=== PATIENT | male | born 1965 | race American Indian/Alaskan Native ===

== ENCOUNTER 2017-04-27 20:51 | Emergency (ER) | payer MEDICARE, OTHER ==
[2017-04-27 21:20] VITALS: BP 128/62; PULSE 61; RESP 16; TEMP 98.9; O2SAT 100
--- NOTE | 2017-04-27 21:53 | ED PDOC ---
HPI: Back Time Seen by Provider: 04/27/17 21:30 Chief Complaint (Nursing): Back Pain Chief Complaint (Provider): Left low back pain, radiating down pain History Per: Patient History/Exam Limitations: no limitations Onset/Duration Of Symptoms: Days Current Symptoms Are (Timing): Still Present Full Body Front + Back: 1 - Pain Additional Complaint(s): Pt has chronic sciatica and gets prescribed #120 mg of percocet 5/325mg every month. Pt states he ran out of mediations. No new trauma. Past Medical History Reviewed: Historical Data, Nursing Documentation, Vital Signs Vital Signs: Last Vital Signs Temp 98.9 F 04/27/17 21:18 Pulse 61 04/27/17 21:18 Resp 16 04/27/17 21:18 BP 128/62 04/27/17 21:18 Pulse Ox 100 04/27/17 21:18 - Medical History PMH: Back Problems (Herniated Discs, Sciatica) - Surgical History Surgical History: No Surg Hx - Family History Family History: States: Unknown Family Hx - Living Arrangements Living Arrangements: With Family - Social History Current smoker - smoking cessation education provided: Yes Alcohol: None Drugs: Denies - Immunization History Hx Tetanus Toxoid Vaccination: No Hx Influenza Vaccination: No Hx Pneumococcal Vaccination: No - Home Medications Home Medications: Ambulatory Orders Medication Instructions Recorded Cyclobenzaprine HCl [Flexeril] 10 mg PO TID #21 tab 12/26/14 Diclofenac Potassium [Cataflam] 50 mg PO TID 12/26/14 Naproxen 500 mg PO Q12 #20 tab 12/26/14 Ibuprofen [Motrin] 600 mg PO Q8 #30 tab 03/26/15 Oxycodone HCl/Acetaminophen 1 tab PO Q6 PRN #10 tab 03/26/15 [Percocet 325 mg-5 mg] Meloxicam [Mobic] 15 mg PO DAILY PRN #30 tab 04/24/15 Methocarbamol [Robaxin] 500 mg PO QID PRN #28 tab 04/24/15 Methocarbamol [Robaxin-750] 750 mg PO BIDPC #20 tab 08/01/15 Naproxen 500 mg PO Q12 #20 tab 08/01/15 Tramadol HCl [Ultram] 50 mg PO Q6 #15 tab 01/20/16 traMADol [Ultram] 50 mg PO Q6 PRN #12 tab 04/13/16 - Allergies Allergies/Adverse Reactions: Allergies Allergy/AdvReac Type Severity Reaction Status Date / Time No Known Allergies Allergy Verified 04/27/17 21:18 Review of Systems ROS Statement: Except As Marked, All Systems Reviewed And Found Negative Constitutional: Negative for: Fever, Chills Gastrointestinal: Negative for: Nausea, Vomiting, Abdominal Pain Genitourinary Male: Negative for: Dysuria, Frequency Musculoskeletal: Positive for: Back Pain Physical Exam - Reviewed Nursing Documentation Reviewed: Yes Vital Signs Reviewed: Yes - Physical Exam Appears: Positive for: Well, Non-toxic, No Acute Distress Head Exam: Positive for: ATRAUMATIC, NORMAL INSPECTION, NORMOCEPHALIC Skin: Positive for: Normal Color, Warm, DRY Eye Exam: Positive for: Normal appearance ENT: Positive for: Normal ENT Inspection Neck: Positive for: Normal, Painless ROM Respiratory: Negative for: Accessory Muscle Use, Respiratory Distress Back: Positive for: Normal Inspection, Other ((+) left leg raise ) Extremity: Positive for: Normal ROM Neurologic/Psych: Positive for: Alert, Oriented - ECG O2 Sat by Pulse Oximetry: 100 Disposition - Clinical Impression Clinical Impression: Sciatica - Patient ED Disposition Is Patient to be Admitted: No Counseled Patient/Family Regarding: Diagnosis, Need For Followup - Disposition Disposition: Routine/Home Disposition Time: 21:53 Condition: GOOD Instructions: Sciatica (ED)
[2017-04-27] MEDS: Oxycodone/Acetaminophen 5/325 mg Tab PO STA (22:02)
[2017-04-27] MEDS ORDERED: Oxycodone/Acetaminophen 5/325 mg Tab ONE (22:03)
== END 2017-04-27 22:10 | disposition home or self-care (01) ==
LOC: H.ER 20:51
DX: M54.32 Sciatica, left side (principal)

== ENCOUNTER 2017-07-27 03:55 | Emergency (ER) | payer MEDICARE ==
[2017-07-27 04:14] VITALS: BMI 25.7
[2017-07-27 04:15] VITALS: BP 121/60; PULSE 63; RESP 16; TEMP 97.9; O2SAT 99
--- NOTE | 2017-07-27 05:16 | ED PDOC ---
HPI: Back Time Seen by Provider: 07/27/17 04:38 Chief Complaint (Nursing): Back Pain Chief Complaint (Provider): low back pain History Per: Patient History/Exam Limitations: no limitations Onset/Duration Of Symptoms: Days (2) Current Symptoms Are (Timing): Still Present Previous Symptoms: Back Pain Exacerbating Factor(s): Turning, Movement Additional History Per: Patient Additional Complaint(s): 52 y/o male history of sciatica presents with low back/left leg pain x 2 days. Patient states his sciatica was exacerbated after moving his couch to clean. Denies bowel/bladder incontinence, numbness/weakness lower extremities. Past Medical History Reviewed: Historical Data, Nursing Documentation, Vital Signs Vital Signs: Last Vital Signs Temp 97.9 F 07/27/17 04:13 Pulse 63 07/27/17 04:13 Resp 16 07/27/17 04:13 BP 121/60 07/27/17 04:13 Pulse Ox 99 07/27/17 04:13 - Medical History PMH: Back Problems (Herniated Discs, Sciatica) - Surgical History Surgical History: No Surg Hx - Family History Family History: States: Unknown Family Hx - Immunization History Hx Tetanus Toxoid Vaccination: No Hx Influenza Vaccination: No Hx Pneumococcal Vaccination: No - Home Medications Home Medications: Ambulatory Orders Medication Instructions Recorded Cyclobenzaprine HCl [Flexeril] 10 mg PO TID #21 tab 12/26/14 Diclofenac Potassium [Cataflam] 50 mg PO TID 12/26/14 Naproxen 500 mg PO Q12 #20 tab 12/26/14 Ibuprofen [Motrin] 600 mg PO Q8 #30 tab 03/26/15 Oxycodone HCl/Acetaminophen 1 tab PO Q6 PRN #10 tab 03/26/15 [Percocet 325 mg-5 mg] Meloxicam [Mobic] 15 mg PO DAILY PRN #30 tab 04/24/15 Methocarbamol [Robaxin] 500 mg PO QID PRN #28 tab 04/24/15 Methocarbamol [Robaxin-750] 750 mg PO BIDPC #20 tab 08/01/15 Naproxen 500 mg PO Q12 #20 tab 08/01/15 Tramadol HCl [Ultram] 50 mg PO Q6 #15 tab 01/20/16 traMADol [Ultram] 50 mg PO Q6 PRN #12 tab 04/13/16 Lidocaine 5% [Lidoderm] 1 patch TOP DAILY #5 patch 07/27/17 Naproxen [Naprosyn] 500 mg PO Q12 PRN #20 tablet 07/27/17 diaZEpam [Valium] 5 mg PO Q12 PRN #10 tab 07/27/17 - Allergies Allergies/Adverse Reactions: Allergies Allergy/AdvReac Type Severity Reaction Status Date / Time No Known Allergies Allergy Verified 07/27/17 04:13 Review of Systems ROS Statement: Except As Marked, All Systems Reviewed And Found Negative Musculoskeletal: Positive for: Back Pain, Leg Pain (left) Physical Exam - Reviewed Nursing Documentation Reviewed: Yes Vital Signs Reviewed: Yes - Physical Exam Appears: Positive for: Well, Non-toxic, No Acute Distress Head Exam: Positive for: ATRAUMATIC, NORMAL INSPECTION, NORMOCEPHALIC Skin: Positive for: Normal Color Cardiovascular/Chest: Positive for: Regular Rate, Rhythm Respiratory: Positive for: Normal Breath Sounds Back: Positive for: Muscle Spasm (lspine paraspinal). Negative for: L CVA Tenderness, R CVA Tenderness, Vertebral Tenderness, Decreased ROM Extremity: Positive for: Normal ROM Neurologic/Psych: Positive for: Alert, Oriented. Negative for: Motor/Sensory Deficits - ECG O2 Sat by Pulse Oximetry: 99 - Progress ED Course And Treament: Patient refusing xray; states pain similar to previous sciatica flare-ups. Percocet PO, valium PO, Naproxen PO Patient educated on findings, discharged with rx Naproxen, valium, lidoderm. Advised follow up PMD 2-3 days. Return precautions given. Disposition - Clinical Impression Clinical Impression: Sciatica, Chronic back pain - Patient ED Disposition Is Patient to be Admitted: No Counseled Patient/Family Regarding: Diagnosis, Need For Followup, Rx Given - Disposition Referrals: Shaik Gordon MD [Primary Care Provider] - Disposition: Routine/Home Disposition Time: 05:17 Condition: IMPROVED Prescriptions: diaZEpam [Valium] 5 mg PO Q12 PRN #10 tab PRN Reason: Muscle Spasm Lidocaine 5% [Lidoderm] 1 patch TOP DAILY #5 patch Naproxen [Naprosyn] 500 mg PO Q12 PRN #20 tablet PRN Reason: Pain, Moderate (4-7) Instructions: Sciatica (ED), Acute Low Back Pain (ED)
[2017-07-27] MEDS ORDERED: Naproxen 500 MG TAB PO ONE (05:19)
[2017-07-27] MEDS ORDERED: Oxycodone/Acetaminophen 5/325 mg Tab ONE (05:20)
[2017-07-27] MEDS: Oxycodone/Acetaminophen 5/325 mg Tab PO ONE (05:22)
[2017-07-27] MEDS: Naproxen 500 MG TAB PO ONE (05:23)
== END 2017-07-27 05:45 | disposition home or self-care (01) ==
LOC: H.ER 03:55
DX: M54.30 Sciatica, unspecified side (principal); G89.29 Other chronic pain

== ENCOUNTER 2017-08-20 11:04 | Emergency (ER) | payer MEDICARE ==
[2017-08-20 11:04] VITALS: BMI 25.7
[2017-08-20 11:15] VITALS: BP 131/75; PULSE 87; RESP 16; TEMP 97; O2SAT 100
--- NOTE | 2017-08-20 12:07 | ED PDOC ---
HPI: Chest Pain Time Seen by Provider: 08/20/17 11:16 Chief Complaint (Nursing): Chest Pain Chief Complaint (Provider): Chest Pain History Per: Patient History/Exam Limitations: no limitations Onset/Duration Of Symptoms: Days (x3) Current Symptoms Are (Timing): Still Present Additional Complaint(s): 52 year old male with a past medical history of sciatica, who presents to the ED complaining of right sided pleuritic chest pain exacerbated by coughing and on deep inspiration x3 days. Patient states that the dry wall crumbled in his home and he has been breathing in the dust. Denies trauma, injury, and fever. Cough is non-productive. No shortness of breath. PMD: Shaik Gordon Past Medical History Reviewed: Historical Data, Nursing Documentation, Vital Signs Vital Signs: Last Vital Signs Temp 97 F L 08/20/17 11:14 Pulse 87 08/20/17 11:14 Resp 16 08/20/17 11:14 BP 131/75 08/20/17 11:14 Pulse Ox 100 08/20/17 12:11 - Medical History PMH: Back Problems (Herniated Discs, Sciatica) - Family History Family History: States: Unknown Family Hx - Immunization History Hx Tetanus Toxoid Vaccination: No Hx Influenza Vaccination: No Hx Pneumococcal Vaccination: No - Home Medications Home Medications: Ambulatory Orders Medication Instructions Recorded Cyclobenzaprine HCl [Flexeril] 10 mg PO TID #21 tab 12/26/14 Diclofenac Potassium [Cataflam] 50 mg PO TID 12/26/14 Naproxen 500 mg PO Q12 #20 tab 12/26/14 Ibuprofen [Motrin] 600 mg PO Q8 #30 tab 03/26/15 Oxycodone HCl/Acetaminophen 1 tab PO Q6 PRN #10 tab 03/26/15 [Percocet 325 mg-5 mg] Meloxicam [Mobic] 15 mg PO DAILY PRN #30 tab 04/24/15 Methocarbamol [Robaxin] 500 mg PO QID PRN #28 tab 04/24/15 Methocarbamol [Robaxin-750] 750 mg PO BIDPC #20 tab 08/01/15 Naproxen 500 mg PO Q12 #20 tab 08/01/15 Tramadol HCl [Ultram] 50 mg PO Q6 #15 tab 06/14/16 traMADol [Ultram] 50 mg PO Q6 PRN #12 tab 04/13/16 Lidocaine 5% [Lidoderm] 1 patch TOP DAILY #5 patch 07/27/17 Naproxen [Naprosyn] 500 mg PO Q12 PRN #20 tablet 07/27/17 diaZEpam [Valium] 5 mg PO Q12 PRN #10 tab 07/27/17 Naproxen [Naprosyn] 500 mg PO Q12H #20 tab 08/20/17 traMADol [Ultram] 50 mg PO Q8 #10 tab 08/20/17 - Allergies Allergies/Adverse Reactions: Allergies Allergy/AdvReac Type Severity Reaction Status Date / Time No Known Allergies Allergy Verified 07/27/17 04:13 Review of Systems ROS Statement: Except As Marked, All Systems Reviewed And Found Negative Constitutional: Negative for: Fever Cardiovascular: Positive for: Chest Pain (pleuritic right sided) Respiratory: Positive for: Cough. Negative for: Shortness of Breath, Sputum Physical Exam - Reviewed Nursing Documentation Reviewed: Yes Vital Signs Reviewed: Yes - Physical Exam Appears: Positive for: Non-toxic, No Acute Distress Head Exam: Positive for: ATRAUMATIC, NORMAL INSPECTION, NORMOCEPHALIC Skin: Positive for: Normal Color, Warm, Dry. Negative for: Rash Eye Exam: Positive for: EOMI, Normal appearance, PERRL Neck: Positive for: Normal, Painless ROM, Supple Cardiovascular/Chest: Positive for: Regular Rate, Rhythm. Negative for: Chest Non Tender, Murmur Respiratory: Positive for: Normal Breath Sounds (diminished breath sounds with shallow inspirations bilaterally). Negative for: Wheezing, Respiratory Distress Gastrointestinal/Abdominal: Positive for: Normal Exam, Soft. Negative for: Tenderness Back: Positive for: Normal Inspection. Negative for: L CVA Tenderness, R CVA Tenderness, Vertebral Tenderness Extremity: Positive for: Normal ROM. Negative for: Pedal Edema, Deformity Neurologic/Psych: Positive for: Alert, Oriented (x3). Negative for: Motor/ Sensory Deficits - ECG O2 Sat by Pulse Oximetry: 100 (RA) Pulse Ox Interpretation: Normal Medical Decision Making Medical Decision Making: Time: 11:34 Plan: --Chest X-Ray 2 views --Reevaluation Scribe Attestation: Documented by Andrea Ingram, acting as a scribe for Bob Zuniga MD. Provider Scribe Attestation: All medical record entries made by the Scribe were at my direction and personally dictated by me. I have reviewed the chart and agree that the record accurately reflects my personal performance of the history, physical exam, medical decision making, and the department course for this patient. I have also personally directed, reviewed, and agree with the discharge instructions and disposition. Disposition - Clinical Impression Clinical Impression: Pleuritic pain - Patient ED Disposition Is Patient to be Admitted: No Counseled Patient/Family Regarding: Studies Performed, Diagnosis, Need For Followup, Rx Given - Disposition Referrals: [facility] [Outside] Disposition: Routine/Home Disposition Time: 12:22 Condition: FAIR Prescriptions: Naproxen [Naprosyn] 500 mg PO Q12H #20 tab traMADol [Ultram] 50 mg PO Q8 #10 tab Instructions: Pleurisy (ED) Forms: [employer] (Persian)
[2017-08-20] MEDS ORDERED: Oxycodone/Acetaminophen 5/325 mg Tab PO STA (12:30)
[2017-08-20] MEDS ORDERED: Oxycodone/Acetaminophen 5/325 mg Tab ONE (12:36)
--- NOTE | 2017-08-20 12:48 | RAD ---
HISTORY: Pleuritic chest pain right side COMPARISON: Chest radiograph dated 11/23/2013. TECHNIQUE: Chest PA and lateral FINDINGS: LUNGS: Right lower lobe infiltrate. PLEURA: No significant pleural effusion identified. No pneumothorax apparent. CARDIOVASCULAR: Normal. OSSEOUS STRUCTURES: Unchanged. VISUALIZED UPPER ABDOMEN: Normal. OTHER FINDINGS: None. IMPRESSION: Right lower lobe infiltrate.
== END 2017-08-20 13:32 | disposition home or self-care (01) ==
LOC: H.ER 11:04
DX: R07.1 Chest pain on breathing (principal)

== ENCOUNTER 2017-11-07 21:46 | Inpatient (IN) | payer MEDICARE ==
[2017-11-07 21:46] VITALS: BMI 25.7
[2017-11-07] MEDS ORDERED: Oxycodone/Acetaminophen 5/325 mg Tab PO ONE (22:39)
--- NOTE | 2017-11-07 22:42 | ED PDOC ---
HPI: General Adult Time Seen by Provider: 11/07/17 22:24 Chief Complaint (Nursing): Shortness Of Breath Chief Complaint (Provider): chest pain History Per: Patient History/Exam Limitations: no limitations Onset/Duration Of Symptoms: Days Current Symptoms Are (Timing): Still Present Additional Complaint(s): Pt. with left lateral chest pain on movement. Started after cleaning some dust from a broken wall. Had dyspnea with it as well. Has had similar 2 months ago and with same dust cleaning. Pt. denies cough, fever, back pain, abd pain, numbness, tingles, weakness. No nausea, vomit, diarrhea. No calf pain, hormone tx. Past Medical History Reviewed: Nursing Documentation, Vital Signs Vital Signs: Last Vital Signs Temp 100.7 F H 11/07/17 21:55 Pulse 68 11/07/17 21:55 Resp 20 11/07/17 21:55 BP Pulse Ox 100 11/07/17 22:49 - Medical History PMH: Back Problems (Herniated Discs, Sciatica) - Family History Family History: States: Unknown Family Hx - Immunization History Hx Tetanus Toxoid Vaccination: No Hx Influenza Vaccination: No Hx Pneumococcal Vaccination: No - Home Medications Home Medications: Ambulatory Orders Medication Instructions Recorded Cyclobenzaprine HCl [Flexeril] 10 mg PO TID #21 tab 12/26/14 Diclofenac Potassium [Cataflam] 50 mg PO TID 12/26/14 Naproxen 500 mg PO Q12 #20 tab 12/26/14 Ibuprofen [Motrin] 600 mg PO Q8 #30 tab 03/26/15 Oxycodone HCl/Acetaminophen 1 tab PO Q6 PRN #10 tab 03/26/15 [Percocet 325 mg-5 mg] Meloxicam [Mobic] 15 mg PO DAILY PRN #30 tab 04/24/15 Methocarbamol [Robaxin] 500 mg PO QID PRN #28 tab 04/24/15 Methocarbamol [Robaxin-750] 750 mg PO BIDPC #20 tab 08/01/15 Naproxen 500 mg PO Q12 #20 tab 08/01/15 Tramadol HCl [Ultram] 50 mg PO Q6 #15 tab 01/20/16 traMADol [Ultram] 50 mg PO Q6 PRN #12 tab 04/13/16 Lidocaine 5% [Lidoderm] 1 patch TOP DAILY #5 patch 07/27/17 Naproxen [Naprosyn] 500 mg PO Q12 PRN #20 tablet 07/27/17 diaZEpam [Valium] 5 mg PO Q12 PRN #10 tab 07/27/17 Naproxen [Naprosyn] 500 mg PO Q12H #20 tab 08/20/17 oxyCODONE/Acetaminophen [Percocet 1 tab PO Q8 #6 tab 08/20/17 5/325 mg Tab] - Allergies Allergies/Adverse Reactions: Allergies Allergy/AdvReac Type Severity Reaction Status Date / Time No Known Allergies Allergy Verified 07/27/17 04:13 Review of Systems ROS Statement: Except As Marked, All Systems Reviewed And Found Negative Cardiovascular: Positive for: Chest Pain Respiratory: Positive for: Shortness of Breath Physical Exam - Reviewed Nursing Documentation Reviewed: Yes Vital Signs Reviewed: Yes - Physical Exam Appears: Positive for: Non-toxic, No Acute Distress Head Exam: Positive for: ATRAUMATIC, NORMAL INSPECTION, NORMOCEPHALIC Skin: Positive for: Normal Color, Warm, DRY Eye Exam: Positive for: EOMI, Normal appearance, PERRL ENT: Positive for: Normal ENT Inspection Neck: Positive for: Normal, Painless ROM Cardiovascular/Chest: Positive for: Regular Rate, Rhythm. Negative for: Chest Non Tender (L lateral chest on touch; no gross deformity; no erythema) Respiratory: Positive for: Normal Breath Sounds. Negative for: Decreased Breath Sounds, Accessory Muscle Use Gastrointestinal/Abdominal: Positive for: Normal Exam, Soft. Negative for: Tenderness Back: Positive for: Normal Inspection. Negative for: L CVA Tenderness, R CVA Tenderness Extremity: Positive for: Normal ROM Neurologic/Psych: Positive for: Alert, Oriented - ECG ECG: Positive for: Interpreted By Me, Viewed By Me ECG Rhythm: Positive for: Normal QRS, Normal ST Segment, Sinus Rhythm O2 Sat by Pulse Oximetry: 100 Pulse Ox Interpretation: Normal - Radiology X-Ray: Interpreted by Me, Viewed By Me X-Ray Interpretation: Infiltrates - Progress ED Course And Treament: 0100: Stable. AAOx3. Pain controlled. Will sign out to Dr. Debra Gonzalez on ct and labs. Disposition - Clinical Impression Clinical Impression: Pleuritic pain - Patient ED Disposition Is Patient to be Admitted: Transfer of Care - Disposition Disposition Time: 00:58 Condition: FAIR Patient Signed Over To: Ryan Kaur
[2017-11-07] MEDS ORDERED: Oxycodone/Acetaminophen 5/325 mg Tab ONE (23:11)
[2017-11-08] MEDS ORDERED: Albuterol-Ipratrop 3 mg / 0.5 (3 ml) UD IH STA (00:57)
[2017-11-08] MEDS ORDERED: Sodium Chloride 0.9% 1,000 ML IV SCH (01:00)
--- NOTE | 2017-11-08 01:01 | ED PDOC ---
- Laboratory Results Result Diagrams: 11/08/17 01:20 11/08/17 01:20 - ECG O2 Sat by Pulse Oximetry: 100 (RA) Pulse Ox Interpretation: Normal Medical Decision Making Medical Decision Making: Time: --01:00 Reassess --Patient signed out to the provider by Dr. Noriega pending labs and CT chest. --04:59 EXAM: CT Angiography Chest With Intravenous Contrast CLINICAL HISTORY: 52 years old, male; Pain; Other: Back pain , SOB; Additional info: Chest pain TECHNIQUE: Axial computed tomographic angiography images of the chest with intravenous contrast using pulmonary embolism protocol. All CT scans at this facility use one or more dose reduction techniques, viz.: automated exposure control; ma/kV adjustment per patient size (including targeted exams where dose is matched to indication; i.e. head); or iterative reconstruction technique. CONTRAST: 95 mL of visipaque 320 administered intravenously. COMPARISON: No relevant prior studies available. FINDINGS: Pulmonary arteries: Extensive bilateral pulmonary emboli in the lower lungs. Aorta: No acute findings. No thoracic aortic aneurysm. Lungs: Infiltrates in the lung bases consistent with pulmonary infarcts. Volar seen along the pleural surface of the upper lungs. Bronchiectasis and scarring in lung bases. No mass. Pleural space: Small left pleural effusion. Very small loculated right pleural effusion. No pneumothorax. Heart: Left ventricular hypertrophy. No evidence of right heart strain. No significant pericardial effusion. Bones/joints: No acute fracture. No dislocation. Soft tissues: Unremarkable. Lymph nodes: Unremarkable. No enlarged lymph nodes. IMPRESSION: 1. Extensive bilateral pulmonary emboli in the lower lungs. Moderate clot burden. 2. Infiltrates in the lung bases consistent with pulmonary infarcts. 3. Small left pleural effusion. --06:00 patient case discussed with Dr. Fong to admit the patient to in-patient telemetry for pneumonia and pulmonary embolism. Scribe Attestation: Documented by Yves Bundy acting as a scribe for Ryan Kaur MD. Provider Attestation: All medical record entries made by the Scribe were at my direction and personally dictated by me. I have reviewed the chart and agree that the record accurately reflects my personal performance of the history, physical exam, medical decision making, and the department course for this patient. I have also personally directed, reviewed, and agree with the discharge instructions and disposition. Disposition Discussed With : Teja Fong Doctor Will See Patient In The: Hospital Counseled Patient/Family Regarding: Studies Performed, Diagnosis - Clinical Impression Clinical Impression: Pleuritic pain, Pulmonary embolism, Pneumonia - POA Present On Arrival: Deep Vein Thrombosis / PE - Disposition Disposition: Admitted as In-Patient Disposition Time: 05:30 Condition: FAIR
[2017-11-08] MEDS ORDERED: Azithromycin 500 MG in NS 250 ML IVPB STA (01:04)
[2017-11-08 01:23] LABS: BASO # 0.1 K/uL (0.0-0.2); BASO % 0.7 % (0.0-2.0); EOS % 0.2 % (0.0-4.0); LYMPH # 1.7 K/uL (1.0-4.3); LYMPH % 13.7 % (20.0-40.0); MEAN CELL VOLUME 77.8 fl (80.0-94.0); MEAN CORPUSCULAR HEMOGLOBIN 24.9 pg (27.0-31.0); MEAN PLATELET VOLUME 7.6 fl (7.2-11.7); MONO # 0.7 K/uL (0.0-0.8); MONO % 5.8 % (0.0-10.0); NEUT # 9.8 K/uL (1.8-7.0); NEUT % 79.6 % (50.0-75.0); NRBC % 0.1 % (0.0-0.0); RBC 5.24 Mil/uL (4.40-5.90); RED CELL DISTRIBUTION WIDTH 16.7 % (11.5-14.5); WHITE BLOOD COUNT 12.3 K/uL (4.8-10.8)
[2017-11-08] MEDS ORDERED: Albuterol 0.083% Inhal Sol (2.5 mg/3 mL) UD ONE (01:24)
[2017-11-08 01:28] LABS: VENOUS BLOOD GAS BASE EXCESS 2.4 mmol/L (0.0-2.0); VENOUS BLOOD GAS PCO2 51 mmHg (40-60); VENOUS BLOOD GAS PO2 24 mm/Hg (30-55); VENOUS BLOOD PH 7.36 (7.32-7.43)
[2017-11-08 01:30] LABS: PARTIAL THROMBOPLASTIN TIME 36.9 Seconds (25.6-37.1); PROTHROMBIN TIME 11.1 Seconds (9.8-13.1)
[2017-11-08 01:33] LABS: ALB/GLOB RATIO 1.2 (1.0-2.1); ALBUMIN 4.1 g/dL (3.5-5.0); ALT/SGPT 37 U/L (21-72); AST/SGOT 16 U/L (17-59); BLOOD UREA NITROGEN 12 mg/dl (9-20); CALCIUM 9.6 mg/dL (8.4-10.2); GFR AFRICAN-AMERICAN > 60; GFR NON-AFRICAN AMERICAN > 60
[2017-11-08] MEDS ORDERED: Iodixanol 320 MG/ML 100 ML BOTTLE IV ONE (03:06)
[2017-11-08] MEDS ORDERED: Sodium Chloride 0.9% 100 ML ONE (03:07)
[2017-11-08] MEDS ORDERED: Enoxaparin 100 mg Syringe SC STA (05:03)
--- NOTE | 2017-11-08 08:29 | RAD ---
HISTORY: COMPARISON: 08/20/2017. TECHNIQUE: Chest PA and lateral FINDINGS: LINES AND TUBES: None. LUNG AND PLEURA: The lungs are well inflated. There is confluent airspace disease in the left lower lobe. There is also minimal airspace disease in the right lung base. Also noted is bibasilar atelectasis/ scarring. HEART AND MEDIASTINUM: The heart is not enlarged. The hilar and mediastinal contours are within normal limits. SKELETAL STRUCTURES: The bony structures are within normal limits for the patient's age. VISUALIZED UPPER ABDOMEN: Normal. OTHER FINDINGS: None. IMPRESSION: Suspect left lower lobe pneumonia. Follow-up to resolution is advised. Right lower lobe atelectasis/ scarring.
[2017-11-08] MEDS ORDERED: Oxycodone/Acetaminophen 5/325 mg Tab ONE (10:14)
[2017-11-08] MEDS: Oxycodone/Acetaminophen 5/325 mg Tab PO PRN ×2 (10:15→18:02)
--- NOTE | 2017-11-08 10:41 | CT ---
PROCEDURE: CT Chest with contrast (Pulmonary Angiogram) HISTORY: chest pain COMPARISON: None available. TECHNIQUE: Axial computed tomography images were obtained of the chest in the pulmonary arterial phase of enhancement. Coronal and sagittal reformatted images were created and reviewed. Maximum intensity projection (MIP) reconstructed images in the following planes: 3 orthogonal planes. Intravenous contrast dose: 95 cc Visipaque 320 Mean Hounsfield unit values in the main pulmonary artery: 264.58 Radiation dose: Total exam DLP = 337.88y mGy-cm. This CT exam was performed using one or more of the following dose reduction techniques: Automated exposure control, adjustment of the mA and/or kV according to patient size, and/or use of iterative reconstruction technique. FINDINGS: PULMONARY ARTERIES: Bilateral lower lobe thrombus at the segmental and subsegmental branches levels right greater than left. AORTA: No acute findings. No thoracic aortic aneurysm. LUNGS: Bilateral lower lobe infiltrates left greater than right. PLEURAL SPACES: Small left pleural effusion. HEART: Unremarkable. No cardiomegaly. No significant pericardial effusion. LYMPH NODES: No lymphadenopathy. BONES, CHEST WALL: Unremarkable. No fracture or destructive lesion OTHER FINDINGS: Unremarkable. IMPRESSION: Bilateral lower lobe pulmonary emboli right greater than left. Concordant results (preliminary interpretation) provided by [facility]. Procedure Completed: 03:34 Preliminary ([facility]) Report: Dictated and Authenticated: 04:59 Final Interpretation: 10:30 November 08, 2017.
--- NOTE | 2017-11-08 11:21 | US ---
PROCEDURE:: Bilateral lower extremity duplex venous Doppler examination. HISTORY: R/o DVT . PRIORS: None. FINDINGS: 2-D, color and duplex Doppler analysis of bilateral lower extremity venous circulation using routine protocol from the femoral veins through the popliteal veins. Venous compressibility: Normal. Flow and augmentation patterns: Normal. Visualized veins upper third of calf: Normal. Grimes cyst: None. IMPRESSION: No sonographic or Doppler evidence for DVT in bilateral lower extremities.
--- NOTE | 2017-11-08 11:42 | CARD ---
APPROVED REPORT EKG Measurement Heart [id number] <Conclusion> Normal sinus rhythm Possible Left atrial enlargement Left ventricular hypertrophy Abnormal ECG
[2017-11-08] MEDS: Enoxaparin 100 mg Syringe SC SCH (18:38)
[2017-11-08] MEDS ORDERED: Enoxaparin 80 mg Syringe SC SCH (21:00)
[2017-11-09] MEDS: Oxycodone/Acetaminophen 5/325 mg Tab PO PRN ×4 (00:18→18:24)
[2017-11-09 05:04] LABS: ABG ALLEN TEST YES; ARTERIAL BLOOD GAS HCO3 26.1 mmol/L (21-28); ARTERIAL BLOOD GAS HEMOGLOBIN 11.9 g/dL (11.7-17.4); ARTERIAL BLOOD GAS O2 CAPACITY 16.6 mL/dL (16-24); ARTERIAL BLOOD GAS O2 CONTENT 16.2 ML/dL (15-23); ARTERIAL BLOOD GAS O2 SAT 97.7 % (95-98); ARTERIAL BLOOD GAS PCO2 32 mm/Hg (35-45); ARTERIAL BLOOD GAS PH 7.49 (7.35-7.45); ARTERIAL BLOOD GAS PO2 85 mm/Hg (80-100); ARTERIAL BLOOD GAS TCO2 25.4 mmol/L (22-28)
[2017-11-09 05:43] LABS: INR 1.2 (0.9-1.2); PROTHROMBIN TIME 13.2 Seconds (9.8-13.1)
[2017-11-09 05:48] LABS: BASO # 0.1 K/uL (0.0-0.2); BASO % 0.5 % (0.0-2.0); EOS % 0.2 % (0.0-4.0); HEMOGLOBIN 12.3 g/dL (12.0-18.0); LYMPH # 2.2 K/uL (1.0-4.3); LYMPH % 17.5 % (20.0-40.0); MEAN CELL VOLUME 77.2 fl (80.0-94.0); MEAN CORPUSCULAR HEMOGLOBIN 24.7 pg (27.0-31.0); MEAN PLATELET VOLUME 8.6 fl (7.2-11.7); MONO # 1.3 K/uL (0.0-0.8); MONO % 10.1 % (0.0-10.0); NEUT # 9.1 K/uL (1.8-7.0); NEUT % 71.7 % (50.0-75.0); RBC 4.96 Mil/uL (4.40-5.90); RED CELL DISTRIBUTION WIDTH 16.4 % (11.5-14.5); WHITE BLOOD COUNT 12.7 K/uL (4.8-10.8)
[2017-11-09 05:51] LABS: ALB/GLOB RATIO 1.2 (1.0-2.1); ALBUMIN 3.9 g/dL (3.5-5.0); ALT/SGPT 32 U/L (21-72); AST/SGOT 17 U/L (17-59); BLOOD UREA NITROGEN 11 mg/dl (9-20); CALCIUM 9.4 mg/dL (8.4-10.2); GFR AFRICAN-AMERICAN > 60; GFR NON-AFRICAN AMERICAN > 60; HDL CHOLESTEROL 37 MG/DL (30-70)
[2017-11-09 06:03] LABS: LDL CHOLESTEROL 79 mg/dL (0-129)
[2017-11-09 06:05] LABS: T4 8.09 ug/dl (5.5-11.0)
[2017-11-09] MEDS: Enoxaparin 100 mg Syringe SC SCH ×2 (06:19→18:25)
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
[2017-11-09] MEDS: Azithromycin 500 MG in Sodium Chloride 0.9% 250 ML IVPB SCH (13:59)
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
[2017-11-09 19:23] LABS: SQUAMOUS EPITHIAL < 1 /hpf (0-5); URINE BILIRUBIN NEGATIVE (NEGATIVE); URINE BLOOD NEGATIVE (NEGATIVE); URINE CLARITY SLIGHTY-CLOUDY (Clear); URINE COLOR YELLOW (YELLOW); URINE GLUCOSE (UA) NEG (Normal); URINE LEUKOCYTE ESTERASE NEG Leu/uL (Negative); URINE PROTEIN NEGATIVE (NEGATIVE)
[2017-11-10] MEDS: Oxycodone/Acetaminophen 5/325 mg Tab PO PRN ×6 (00:22→20:17)
[2017-11-10] MEDS: Enoxaparin 100 mg Syringe SC SCH (06:10)
[2017-11-10 06:28] LABS: HEMOGLOBIN 12.3 g/dL (12.0-18.0); MEAN CELL VOLUME 77.9 fl (80.0-94.0); MEAN CORPUSCULAR HEMOGLOBIN 24.9 pg (27.0-31.0); RBC 4.91 Mil/uL (4.40-5.90); RED CELL DISTRIBUTION WIDTH 16.7 % (11.5-14.5)
[2017-11-10] MEDS: Azithromycin 500 MG in Sodium Chloride 0.9% 250 ML IVPB SCH (08:04)
--- NOTE | 2017-11-10 17:13 | CP.PCM.PN ---
Subjective - Date & Time of Evaluation Date of Evaluation: 11/10/17 Time of Evaluation: 12:25 - Subjective Subjective: F/U PE, PNA Left C/P with breathing and movement Objective - Vital Signs/Intake and Output Vital Signs (last 24 hours): Temp Pulse Resp BP Pulse Ox 97.2 F L 81 20 127/74 97 11/10/17 16:35 11/10/17 16:35 11/10/17 16:35 11/10/17 16:35 11/10/17 16:35 - Medications Medications: Current Medications Apixaban (Eliquis) 5 mg PO BID KATARINA PRN Reason: Protocol Last Admin: 11/10/17 16:20 Dose: 5 mg Ceftriaxone Sodium 1 gm/ (Sodium Chloride) 100 mls @ 100 mls/hr IVPB DAILY KATARINA PRN Reason: Protocol Last Admin: 11/10/17 08:03 Dose: 100 mls/hr Azithromycin 500 mg/ Sodium (Chloride) 250 mls @ 250 mls/hr IVPB DAILY KATARINA PRN Reason: Protocol Last Admin: 11/10/17 08:04 Dose: 250 mls/hr Oxycodone/Acetaminophen (Percocet 5/325 Mg Tab) 1 tab PO Q4 PRN PRN Reason: Pain, moderate (4-7) Stop: 11/11/17 10:05 Last Admin: 11/10/17 09:31 Dose: 1 tab Oxycodone/Acetaminophen (Percocet 5/325 Mg Tab) 2 tab PO Q6 PRN PRN Reason: Pain, severe (8-10) Stop: 11/11/17 17:44 Last Admin: 11/10/17 13:55 Dose: 2 tab Thiamine HCl (Vitamin B1 Tab) 100 mg PO DAILY [facility] Last Admin: 11/10/17 08:03 Dose: 100 mg - Labs Labs: 11/10/17 05:20 11/09/17 04:20 PT 13.2 Seconds (9.8-13.1) H 11/09/17 04:20 INR 1.2 (0.9-1.2) 11/09/17 04:20 APTT 36.9 Seconds (25.6-37.1) 11/08/17 01:20 - Constitutional Appears: No Acute Distress - Head Exam Head Exam: NORMAL INSPECTION - Eye Exam Eye Exam: PERRL - ENT Exam ENT Exam: Normal Exam - Neck Exam Neck Exam: Normal Inspection - Respiratory Exam Respiratory Exam: Chest Wall Tenderness (L chest wall tenderness withh breathing), Decreased Breath Sounds (at bases) - Cardiovascular Exam Cardiovascular Exam: REGULAR RHYTHM - GI/Abdominal Exam GI & Abdominal Exam: Soft, Normal Bowel Sounds - Extremities Exam Extremities Exam: Normal Inspection - Back Exam Back Exam: CVA tenderness (L) - Neurological Exam Neurological Exam: Alert, Oriented x3, Reflexes Normal. absent: Motor Sensory Deficit - Psychiatric Exam Psychiatric exam: Normal Mood - Skin Skin Exam: Warm Assessment and Plan (1) Pulmonary embolism, bilateral Status: Acute (2) Bilateral pneumonia Status: Acute (3) Pleural effusion, left Status: Acute (4) Back pain Status: Acute (5) Chronic low back pain Status: Chronic - Assessment and Plan (Free Text) Plan: continue Zithromax , Rocephin , pain medication , Eliquis , f/u CXR , Cardiology
--- NOTE | 2017-11-10 18:11 | CP.PCM.PN ---
Subjective - Date & Time of Evaluation Date of Evaluation: 11/10/17 Time of Evaluation: 18:08 - Subjective Subjective: LESS CP OR SOB. AMBULATING WELL. ECHO SHOWS NO RV STRAIN Objective - Vital Signs/Intake and Output Vital Signs (last 24 hours): Temp Pulse Resp BP Pulse Ox 97.2 F L 81 20 127/74 97 11/10/17 16:35 11/10/17 16:35 11/10/17 16:35 11/10/17 16:35 11/10/17 16:35 Intake and Output: 11/10/17 11/10/17 06:59 18:59 Intake Total 950 Balance 950 - Medications Medications: Current Medications Apixaban (Eliquis) 5 mg PO BID KATARINA PRN Reason: Protocol Last Admin: 11/10/17 16:20 Dose: 5 mg Ceftriaxone Sodium 1 gm/ (Sodium Chloride) 100 mls @ 100 mls/hr IVPB DAILY KATARINA PRN Reason: Protocol Last Admin: 11/10/17 08:03 Dose: 100 mls/hr Azithromycin 500 mg/ Sodium (Chloride) 250 mls @ 250 mls/hr IVPB DAILY KAATRINA PRN Reason: Protocol Last Admin: 11/10/17 08:04 Dose: 250 mls/hr Oxycodone/Acetaminophen (Percocet 5/325 Mg Tab) 1 tab PO Q4 PRN PRN Reason: Pain, moderate (4-7) Stop: 11/11/17 10:05 Last Admin: 11/10/17 17:55 Dose: 1 tab Oxycodone/Acetaminophen (Percocet 5/325 Mg Tab) 2 tab PO Q6 PRN PRN Reason: Pain, severe (8-10) Stop: 11/11/17 17:44 Last Admin: 11/10/17 13:55 Dose: 2 tab Thiamine HCl (Vitamin B1 Tab) 100 mg PO DAILY [facility] Last Admin: 11/10/17 08:03 Dose: 100 mg - Labs Labs: 11/10/17 05:20 11/09/17 04:20 PT 13.2 Seconds (9.8-13.1) H 11/09/17 04:20 INR 1.2 (0.9-1.2) 11/09/17 04:20 APTT 36.9 Seconds (25.6-37.1) 11/08/17 01:20 - Constitutional Appears: Well - Head Exam Head Exam: ATRAUMATIC, NORMAL INSPECTION, NORMOCEPHALIC - Eye Exam Eye Exam: EOMI, Normal appearance, PERRL. absent: Conjunctival injection, Nystagmus, Periorbital swelling, Periorbital tenderness, Scleral icterus Pupil Exam: NORMAL ACCOMODATION, PERRL - ENT Exam ENT Exam: Mucous Membranes Moist, Normal Exam. absent: Mucous Membranes Dry, Normal External Ear Exam, Normal Oropharynx, TM's Normal Bilaterally - Neck Exam Neck Exam: Full ROM, Normal Inspection. absent: Lymphadenopathy, Meningismus, Tenderness, Thyromegaly - Respiratory Exam Respiratory Exam: Clear to Ausculation Bilateral, NORMAL BREATHING PATTERN. absent: Accessory Muscle Use, Chest Wall Tenderness, Decreased Breath Sounds, Prolonged Expiratory Phase, Rales, Rhonchi, Wheezes, Respiratory Distress, Stridor - Cardiovascular Exam Cardiovascular Exam: REGULAR RHYTHM, +S1, +S2, Murmur. absent: Bradycardia, Tachycardia, Clicks, Diastolic murmur, Gallop, Irregular Rhythm, JVD, RRR, Rubs , +S4 - GI/Abdominal Exam GI & Abdominal Exam: Soft, Normal Bowel Sounds. absent: Bruit, Distended, Firm , Guarding, Rigid, Tenderness, Diminished Bowel Sounds, Hernia, Hyperactive Bowel Sounds, Hypoactive Bowel Sounds, Organomegaly, Pulsatile Mass, Rebound, Mass - Extremities Exam Extremities Exam: Full ROM, Normal Capillary Refill, Normal Inspection. absent : Calf Tenderness, Joint Swelling, Pedal Edema, Tenderness - Back Exam Back Exam: NORMAL INSPECTION. absent: CVA tenderness (L), CVA tenderness (R), Full ROM, muscle spasm, paraspinal tenderness, rash noted, tenderness, vertebral tenderness - Neurological Exam Neurological Exam: Alert, Awake, CN II-XII Intact, Normal Gait, Oriented x3. absent: Abnormal Gait, Altered, Motor Sensory Deficit, Reflexes Normal - Psychiatric Exam Psychiatric exam: Normal Affect, Normal Mood. absent: Agitated, Anxious, Depressed, Flat Affect, Homicidal Ideation, Manic, Suicidal Ideation - Skin Skin Exam: Dry, Intact, Normal Color, Warm. absent: Abrasion, Cyanosis, Diaphoretic, Erythema, Mottled, Pallor, Pallor, Petechiae, Rash, Urticaria, Vesicles Assessment and Plan (1) Pleuritic pain Status: Acute (2) Pulmonary embolism, bilateral Status: Acute - Assessment and Plan (Free Text) Plan: ECHO REVEALS NML EF, NML PAP, NO RV DYSFUNCTION. PATIENT STABLE FROM CARD PERSPECTIVE\ CONT ELIQUIS FOR 3-6 MONTHS OR LONGER DEPENDING ON UNDERLYING COAGULOPATHY
[2017-11-11] MEDS: Oxycodone/Acetaminophen 5/325 mg Tab PO PRN ×4 (03:03→21:05)
[2017-11-11] MEDS ORDERED: Albuterol-Ipratrop 3 mg / 0.5 (3 ml) UD INH STA (03:59)
--- NOTE | 2017-11-11 07:24 | CP.PCM.PCO ---
Physician Communication Note - Physician Communication Note Physician Communication Note: I was called by nurse because patient was complaining of chest tightness Addendum Addendum: 11/11/17 07:15 sensation and pleuritic chest pain with deep inspiration, similar complains that he had on admission. Patient reports that these symptoms improved after nebulizer treatment in ER. Denies dizziness, blurry vision, SOB, N/V or other associated complains. When I saw patient he was awake, oriented x 3, lying comfortable in bed, answering all my questions properly. VS : HR: 71, BP: 120/ 70, oxygen sat 97 in 3 LMP via NC, RR:15. PE: respiratory: CTA bilateral CV: normal, no tachy EKG at bedside: showed NSR, HR: 71, no evidence of acute ST-T waves changes Duoneb inh was given once re-assessment: after duoneb treatment patient was feeling better, reports that his chest tightness sensation and pleuritic chest pain improved significantly.
[2017-11-11] MEDS: Azithromycin 500 MG in Sodium Chloride 0.9% 250 ML IVPB SCH (09:06)
--- NOTE | 2017-11-11 09:57 | RAD ---
HISTORY: COMPARISON: 11/07/2017. TECHNIQUE: Chest PA and lateral FINDINGS: LINES AND TUBES: None. LUNG AND PLEURA: The lungs are well inflated. There is right basilar atelectasis. There is persistent consolidation in the left lower lobe. HEART AND MEDIASTINUM: The heart is not enlarged. The hilar and mediastinal contours are within normal limits. SKELETAL STRUCTURES: The bony structures are within normal limits for the patient's age. VISUALIZED UPPER ABDOMEN: Normal. OTHER FINDINGS: None. IMPRESSION: Persistent left lower lobe pneumonia. Follow-up to resolution is advised.
--- NOTE | 2017-11-11 10:00 | PQF GENQUE ---
Dr. Fong, 2 queries: 1. Please specify type of pneumonia or possible type of pneumonia in the progress notes: if known: i.e. (Note: CAP, HAP, and HCAP indicate where the pneumonia was acquired, not a specific type.) Aspiration pneumonia Please document specific aspirate (food, liquids, etc.) Please indicate if this is postprocedural Bacterial (specify organism) Bronchopneumonia (specify organism) Interstitual pneumonia Organizing pneumonia/BOOP Pneumonia with influenza, radha flu, or H1N1 flu RSV pneumonia Tuberculosis, pulmonary Viral pneumonia Other pneumonia (specify organism or type) Clinically unable to determine Unknown 2. Please specify the organism causing the pneumonia 11/08 CXR report: Suspect left lower lobe pneumonia. Follow-up to resolution is advised. Right lower lobe atelectasis/ scarring. IV: Zithromax and Rocephin This form is a permanent part of the medical record Clarification of your documentation is requested to better reflect the severity of illness and intensity of treatment of your patient. Indicators present [] Specify: [] [] Specify: [] [] Specify: [] [] Specify: [] Location in the medical record that reflects the above clinical findings: [] Treatment Provided: [] PHYSICIAN'S RESPONSE Based on your medical judgment of the clinical indicators outlined above please clarify the following: [] Practitioner response [] If unable to determine, please check the box, sign and date. Present On Admission (POA) Indicator: [] Present at the time of admission [] Not present at the time of admission [] Clinically Undetermined In responding to this query, please exercise your independent professional judgment. The fact that a question is asked does not imply that any particular answer is desired or expected. Thank you for your clarification on this documentation. If you have any questions please call. * Thank you, Sophia Galvez RN ext. #[phone] MTDD
--- NOTE | 2017-11-11 13:02 | CARD ---
APPROVED REPORT EXAM: Two-dimensional and M-mode echocardiogram with Doppler and color Doppler. Other Information Quality : GoodRhythm : NSR Technically limited study due to Pt Unable to lay on side INDICATION Pulmonary Hypertention 2D DIMENSIONS IVSd1.07 (0.7-1.1cm)LVDd5.25 (3.9-5.9cm) PWd0.72 (0.7-1.1cm)IVSs1.52 (0.8-1.2cm) LVDs3.19 (2.5-4.0cm)FS (%) 39.3 % PWs1.46 (0.8-1.2cm) M-Mode DIMENSIONS Left Atrium (MM)4.50 (2.5-4.0cm)IVSd1.18 (0.7-1.1cm) Aortic Root3.79 (2.2-3.7cm)LVDd5.71 (4.0-5.6cm) Aortic Cusp Exc.2.18 (1.5-2.0cm)PWd1.41 (0.7-1.1cm) IVSs2.06 cmFS (%) 45 % LVDs3.15 (2.0-3.8cm)PWs1.91 cm Mitral Valve MV E Iduheuit11.4cm/sMV DECEL [id number] A Yxpmxiag01.4cm/s MV ACR366asX/A ratio0.9MVA (PHT)2.01cm2 TDI Lateral E' Peak V8.72cm/sMedial E' Peak V8.07cm/sE/Lateral E'5.6 E/Medial E'6.0 Pulmonary Valve PV Peak Tuyhdxgf789.1cm/s Tricuspid Valve TR Peak Ecyuvqyt92wr/sRAP IPIMSOKN88oqClGP Peak Gr.4mmHg [id number] LEFT VENTRICLE The left ventricle is normal size. There is normal left ventricular wall thickness. The left ventricular function is normal. The left ventricular ejection fraction is 55% There is normal LV segmental wall motion. The left ventricular diastolic function is normal. No left ventricle thrombus noted on this study. There is no ventricular septal defect visualized. There is no left ventricular aneurysm. There is no mass noted in the left ventricle. RIGHT VENTRICLE The right ventricle is normal size. There is normal right ventricular wall thickness. The right ventricular systolic function is normal. ATRIA The left atrium size is normal. The right atrium size is normal. The interatrial septum is intact with no evidence for an atrial septal defect. AORTIC VALVE The aortic valve is normal in structure. No aortic regurgitation is present. There is no aortic valvular stenosis. There is no aortic valvular vegetation. MITRAL VALVE The mitral valve is normal in structure. There is no evidence of mitral valve prolapse. There is no mitral valve stenosis. There is no mitral valve regurgitation noted. TRICUSPID VALVE The tricuspid valve is normal in structure. There is no tricuspid valve regurgitation noted. There is no tricuspid valve prolapse or vegetation. There is no tricuspid valve stenosis. PULMONIC VALVE The pulmonary valve is normal in structure. There is no pulmonic valvular regurgitation. There is no pulmonic valvular stenosis. GREAT VESSELS The aortic root is normal in size. The ascending aorta is normal in size. The IVC is normal in size and collapses >50% with inspiration. PERICARDIAL EFFUSION The pericardium appears normal. There is no pleural effusion. <Conclusion> Normal ECHOcardiogram
--- NOTE | 2017-11-11 16:34 | CP.PCM.PN ---
Subjective - Date & Time of Evaluation Date of Evaluation: 11/11/17 Time of Evaluation: 11:20 - Subjective Subjective: F/U PE/PNA Less chest pain with breathing and movements. Objective - Vital Signs/Intake and Output Vital Signs (last 24 hours): Temp Pulse Resp BP Pulse Ox 98.1 F 74 20 106/63 90 L 11/11/17 16:04 11/11/17 16:04 11/11/17 16:04 11/11/17 16:04 11/11/17 16:04 - Medications Medications: Current Medications Apixaban (Eliquis) 5 mg PO BID [facility] PRN Reason: Protocol Last Admin: 11/11/17 09:03 Dose: 5 mg Ceftriaxone Sodium 1 gm/ (Sodium Chloride) 100 mls @ 100 mls/hr IVPB DAILY [facility] PRN Reason: Protocol Last Admin: 11/11/17 09:04 Dose: 100 mls/hr Azithromycin 500 mg/ Sodium (Chloride) 250 mls @ 250 mls/hr IVPB DAILY [facility] PRN Reason: Protocol Last Admin: 11/11/17 09:06 Dose: 250 mls/hr Oxycodone/Acetaminophen (Percocet 5/325 Mg Tab) 2 tab PO Q4 PRN PRN Reason: Pain, severe (8-10) Stop: 11/13/17 21:01 Last Admin: 11/11/17 09:24 Dose: 2 tab Thiamine HCl (Vitamin B1 Tab) 100 mg PO DAILY [facility] Last Admin: 11/11/17 09:04 Dose: 100 mg - Labs Labs: 11/10/17 05:20 11/09/17 04:20 PT 13.2 Seconds (9.8-13.1) H 11/09/17 04:20 INR 1.2 (0.9-1.2) 11/09/17 04:20 APTT 36.9 Seconds (25.6-37.1) 11/08/17 01:20 - Constitutional Appears: No Acute Distress - Head Exam Head Exam: NORMAL INSPECTION - Eye Exam Eye Exam: PERRL - ENT Exam ENT Exam: Normal Exam - Neck Exam Neck Exam: Normal Inspection - Respiratory Exam Respiratory Exam: Chest Wall Tenderness (less chest wall anterior and lateral with breathing), Decreased Breath Sounds (a bases) - Cardiovascular Exam Cardiovascular Exam: REGULAR RHYTHM - GI/Abdominal Exam GI & Abdominal Exam: Soft, Normal Bowel Sounds - Extremities Exam Extremities Exam: Normal Inspection - Back Exam Back Exam: NORMAL INSPECTION - Neurological Exam Neurological Exam: Alert, Oriented x3, Reflexes Normal - Psychiatric Exam Psychiatric exam: Normal Mood - Skin Skin Exam: Normal Color, Warm Assessment and Plan (1) Pulmonary embolism, bilateral Status: Acute (2) Bilateral pneumonia Status: Acute (3) Pleural effusion, left Status: Acute (4) Back pain Status: Acute (5) Chronic low back pain Status: Chronic - Assessment and Plan (Free Text) Plan: CXR today: Persistent LLL PNA. Continue Zithromax, Rocephin, Duoneb, Eliquis less pleuritic pain, continue rest of Tx.
--- NOTE | 2017-11-11 16:51 | CP.PCM.PN ---
Subjective - Date & Time of Evaluation Date of Evaluation: 11/11/17 Time of Evaluation: 16:51 - Subjective Subjective: no complaints Objective - Vital Signs/Intake and Output Vital Signs (last 24 hours): Temp Pulse Resp BP Pulse Ox 98.1 F 74 20 106/63 90 L 11/11/17 16:04 11/11/17 16:04 11/11/17 16:04 11/11/17 16:04 11/11/17 16:04 - Medications Medications: Current Medications Apixaban (Eliquis) 5 mg PO BID [facility] PRN Reason: Protocol Last Admin: 11/11/17 09:03 Dose: 5 mg Ceftriaxone Sodium 1 gm/ (Sodium Chloride) 100 mls @ 100 mls/hr IVPB DAILY [facility] PRN Reason: Protocol Last Admin: 11/11/17 09:04 Dose: 100 mls/hr Azithromycin 500 mg/ Sodium (Chloride) 250 mls @ 250 mls/hr IVPB DAILY [facility] PRN Reason: Protocol Last Admin: 11/11/17 09:06 Dose: 250 mls/hr Oxycodone/Acetaminophen (Percocet 5/325 Mg Tab) 2 tab PO Q4 PRN PRN Reason: Pain, severe (8-10) Stop: 11/13/17 21:01 Last Admin: 11/11/17 09:24 Dose: 2 tab Thiamine HCl (Vitamin B1 Tab) 100 mg PO DAILY [facility] Last Admin: 11/11/17 09:04 Dose: 100 mg - Labs Labs: 11/10/17 05:20 11/09/17 04:20 PT 13.2 Seconds (9.8-13.1) H 11/09/17 04:20 INR 1.2 (0.9-1.2) 11/09/17 04:20 APTT 36.9 Seconds (25.6-37.1) 11/08/17 01:20 Assessment and Plan (1) Pleuritic pain Status: Acute (2) Pulmonary embolism, bilateral Status: Acute - Assessment and Plan (Free Text) Plan: stable for d/c on eliquis 5mg bid
--- NOTE | 2017-11-11 18:10 | CARD ---
APPROVED REPORT EKG Measurement Heart [id number] <Conclusion> Normal sinus rhythm Voltage criteria for left ventricular hypertrophy Abnormal ECG
[2017-11-11] MEDS ORDERED: Albuterol-Ipratrop 3 mg / 0.5 (3 ml) UD INH SCH (22:00)
[2017-11-12] MEDS: Albuterol-Ipratrop 3 mg / 0.5 (3 ml) UD INH SCH ×4 (01:04→19:04)
[2017-11-12] MEDS: Azithromycin 500 MG in Sodium Chloride 0.9% 250 ML IVPB SCH (10:07)
[2017-11-12] MEDS: Oxycodone/Acetaminophen 5/325 mg Tab PO PRN ×3 (10:09→22:17)
--- NOTE | 2017-11-12 16:04 | CP.PCM.PN ---
Subjective - Date & Time of Evaluation Date of Evaluation: 11/12/17 Time of Evaluation: 14:40 - Subjective Subjective: no SOB , no SCOTT , minimal L chest pain with breathing , low back pain Objective - Vital Signs/Intake and Output Vital Signs (last 24 hours): Temp Pulse Resp BP Pulse Ox 98.3 F 60 16 115/70 96 11/12/17 12:39 11/12/17 12:39 11/12/17 12:39 11/12/17 12:39 11/12/17 12:39 - Medications Medications: Current Medications Albuterol/Ipratropium (Duoneb 3 Mg/0.5 Mg (3 Ml) Ud) 3 ml INH RQ6 [facility] Last Admin: 11/12/17 13:00 Dose: 3 ml Apixaban (Eliquis) 5 mg PO BID [facility] PRN Reason: Protocol Last Admin: 11/12/17 10:07 Dose: 5 mg Ceftriaxone Sodium 1 gm/ (Sodium Chloride) 100 mls @ 100 mls/hr IVPB DAILY [facility] PRN Reason: Protocol Last Admin: 11/12/17 10:07 Dose: 100 mls/hr Azithromycin 500 mg/ Sodium (Chloride) 250 mls @ 250 mls/hr IVPB DAILY [facility] PRN Reason: Protocol Last Admin: 11/12/17 10:07 Dose: 250 mls/hr Oxycodone/Acetaminophen (Percocet 5/325 Mg Tab) 2 tab PO Q4 PRN PRN Reason: Pain, severe (8-10) Stop: 11/13/17 21:01 Last Admin: 11/12/17 10:09 Dose: 2 tab Thiamine HCl (Vitamin B1 Tab) 100 mg PO DAILY [facility] Last Admin: 11/12/17 10:07 Dose: 100 mg - Labs Labs: 11/10/17 05:20 11/09/17 04:20 PT 13.2 Seconds (9.8-13.1) H 11/09/17 04:20 INR 1.2 (0.9-1.2) 11/09/17 04:20 APTT 36.9 Seconds (25.6-37.1) 11/08/17 01:20 - Constitutional Appears: No Acute Distress - Head Exam Head Exam: NORMAL INSPECTION - Eye Exam Eye Exam: PERRL - ENT Exam ENT Exam: Normal Exam - Neck Exam Neck Exam: Normal Inspection - Respiratory Exam Respiratory Exam: Clear to Ausculation Bilateral - Cardiovascular Exam Cardiovascular Exam: REGULAR RHYTHM - GI/Abdominal Exam GI & Abdominal Exam: Soft, Normal Bowel Sounds - Extremities Exam Extremities Exam: Normal Inspection - Back Exam Back Exam: tenderness - Neurological Exam Neurological Exam: Alert, CN II-XII Intact, Oriented x3. absent: Motor Sensory Deficit - Psychiatric Exam Psychiatric exam: Anxious - Skin Skin Exam: Warm Assessment and Plan (1) Pulmonary embolism, bilateral Status: Acute (2) Bilateral pneumonia Status: Acute (3) Pleural effusion, left Status: Acute (4) Back pain Status: Acute (5) Chronic low back pain Status: Chronic - Assessment and Plan (Free Text) Plan: continue Rocephin , Zithromax , Eliquis , pain medication
--- NOTE | 2017-11-12 20:13 | CP.PCM.PN ---
Subjective - Date & Time of Evaluation Date of Evaluation: 11/12/17 Time of Evaluation: 20:11 - Subjective Subjective: FEELS BETTER RESP BROWN. LEFT BASILAR RHONCHI AND FINE CRACKLES. Objective - Vital Signs/Intake and Output Vital Signs (last 24 hours): Temp Pulse Resp BP Pulse Ox 97.4 F L 60 16 123/75 96 11/12/17 19:55 11/12/17 19:55 11/12/17 19:55 11/12/17 19:55 11/12/17 19:55 - Medications Medications: Current Medications Albuterol/Ipratropium (Duoneb 3 Mg/0.5 Mg (3 Ml) Ud) 3 ml INH RQ6 [facility] Last Admin: 11/12/17 19:04 Dose: 3 ml Apixaban (Eliquis) 5 mg PO BID [facility] PRN Reason: Protocol Last Admin: 11/12/17 17:25 Dose: 5 mg Ceftriaxone Sodium 1 gm/ (Sodium Chloride) 100 mls @ 100 mls/hr IVPB DAILY [facility] PRN Reason: Protocol Last Admin: 11/12/17 10:07 Dose: 100 mls/hr Azithromycin 500 mg/ Sodium (Chloride) 250 mls @ 250 mls/hr IVPB DAILY [facility] PRN Reason: Protocol Last Admin: 11/12/17 10:07 Dose: 250 mls/hr Oxycodone/Acetaminophen (Percocet 5/325 Mg Tab) 2 tab PO Q4 PRN PRN Reason: Pain, severe (8-10) Stop: 11/13/17 21:01 Last Admin: 11/12/17 17:26 Dose: 2 tab Thiamine HCl (Vitamin B1 Tab) 100 mg PO DAILY [facility] Last Admin: 11/12/17 10:07 Dose: 100 mg - Labs Labs: 11/10/17 05:20 11/09/17 04:20 PT 13.2 Seconds (9.8-13.1) H 11/09/17 04:20 INR 1.2 (0.9-1.2) 11/09/17 04:20 APTT 36.9 Seconds (25.6-37.1) 11/08/17 01:20 Assessment and Plan (1) Pleuritic pain Status: Acute (2) Pulmonary embolism, bilateral Status: Acute - Assessment and Plan (Free Text) Plan: CONTINUE CURRENT CARE. ELIQUIS FOR 6 MONTHS.
[2017-11-12 20:59] LABS: B2 GLYCOPROTEIN I AB(IGA) <9 SAU (<=20); B2 GLYCOPROTEIN I AB(IGG) <9 SGU (<=20); B2 GLYCOPROTEIN I AB(IGM) <9 SMU (<=20)
[2017-11-13 00:28] LABS: CARDIOLIPIN AB (IGA) <11 APL (<=11); CARDIOLIPIN AB (IGG) <14 GPL (<=14); CARDIOLIPIN AB (IGM) <12 MPL (<=12)
[2017-11-13] MEDS: Albuterol-Ipratrop 3 mg / 0.5 (3 ml) UD INH SCH ×4 (01:00→19:01)
[2017-11-13] MEDS: Oxycodone/Acetaminophen 5/325 mg Tab PO PRN ×3 (04:26→21:59)
[2017-11-13 05:51] LABS: PHOSPHATIDYLSERINE AB IGA <20 U/mL (<20); PHOSPHATIDYLSERINE AB IGG 34 U/mL (<10); PHOSPHATIDYLSERINE AB IGM <25 U/mL (<25)
[2017-11-13] MEDS: Azithromycin 500 MG in Sodium Chloride 0.9% 250 ML IVPB SCH (10:20)
--- NOTE | 2017-11-13 16:01 | CP.PCM.PN ---
Subjective - Date & Time of Evaluation Date of Evaluation: 11/13/17 Time of Evaluation: 12:10 - Subjective Subjective: no SOB , no SOB , no SCOTT , low back pain Objective - Vital Signs/Intake and Output Vital Signs (last 24 hours): Temp Pulse Resp BP Pulse Ox 98.6 F 71 18 123/79 95 11/13/17 12:17 11/13/17 12:17 11/13/17 12:17 11/13/17 12:17 11/13/17 12:17 - Medications Medications: Current Medications Albuterol/Ipratropium (Duoneb 3 Mg/0.5 Mg (3 Ml) Ud) 3 ml INH RQ6 [facility] Last Admin: 11/13/17 13:41 Dose: 3 ml Apixaban (Eliquis) 5 mg PO BID [facility] PRN Reason: Protocol Last Admin: 11/13/17 10:19 Dose: 5 mg Ceftriaxone Sodium 1 gm/ (Sodium Chloride) 100 mls @ 100 mls/hr IVPB DAILY [facility] PRN Reason: Protocol Last Admin: 11/13/17 10:20 Dose: 100 mls/hr Azithromycin 500 mg/ Sodium (Chloride) 250 mls @ 250 mls/hr IVPB DAILY [facility] PRN Reason: Protocol Last Admin: 11/13/17 10:20 Dose: 250 mls/hr Oxycodone/Acetaminophen (Percocet 5/325 Mg Tab) 2 tab PO Q4 PRN PRN Reason: Pain, severe (8-10) Stop: 11/13/17 21:01 Last Admin: 11/13/17 13:18 Dose: 2 tab Thiamine HCl (Vitamin B1 Tab) 100 mg PO DAILY [facility] Last Admin: 11/13/17 10:19 Dose: 100 mg - Labs Labs: 11/10/17 05:20 11/09/17 04:20 PT 13.2 Seconds (9.8-13.1) H 11/09/17 04:20 INR 1.2 (0.9-1.2) 11/09/17 04:20 APTT 36.9 Seconds (25.6-37.1) 11/08/17 01:20 - Constitutional Appears: No Acute Distress - Head Exam Head Exam: NORMAL INSPECTION - Eye Exam Eye Exam: PERRL - ENT Exam ENT Exam: Normal Exam - Neck Exam Neck Exam: Normal Inspection - Respiratory Exam Respiratory Exam: NORMAL BREATHING PATTERN - Cardiovascular Exam Cardiovascular Exam: REGULAR RHYTHM - GI/Abdominal Exam GI & Abdominal Exam: Soft, Normal Bowel Sounds - Extremities Exam Extremities Exam: Normal Inspection - Back Exam Back Exam: tenderness - Neurological Exam Neurological Exam: Alert, CN II-XII Intact, Oriented x3. absent: Motor Sensory Deficit - Psychiatric Exam Psychiatric exam: Anxious - Skin Skin Exam: Warm Assessment and Plan (1) Pulmonary embolism, bilateral Status: Acute (2) Bilateral pneumonia Status: Acute (3) Pleural effusion, left Status: Acute (4) Back pain Status: Acute (5) Chronic low back pain Status: Chronic - Assessment and Plan (Free Text) Plan: continue Rocephin , Zithromax , Eliquis , pain medication , CT Chest , ABG am
--- NOTE | 2017-11-13 16:03 | CP.PCM.PN ---
Subjective - Date & Time of Evaluation Date of Evaluation: 11/13/17 Time of Evaluation: 16:03 Objective - Vital Signs/Intake and Output Vital Signs (last 24 hours): Temp Pulse Resp BP Pulse Ox 98.2 F 56 L 16 119/69 95 11/13/17 16:02 11/13/17 16:02 11/13/17 16:02 11/13/17 16:02 11/13/17 16:02 - Medications Medications: Current Medications Albuterol/Ipratropium (Duoneb 3 Mg/0.5 Mg (3 Ml) Ud) 3 ml INH RQ6 [facility] Last Admin: 11/13/17 13:41 Dose: 3 ml Apixaban (Eliquis) 5 mg PO BID [facility] PRN Reason: Protocol Last Admin: 11/13/17 10:19 Dose: 5 mg Ceftriaxone Sodium 1 gm/ (Sodium Chloride) 100 mls @ 100 mls/hr IVPB DAILY [facility] PRN Reason: Protocol Last Admin: 11/13/17 10:20 Dose: 100 mls/hr Azithromycin 500 mg/ Sodium (Chloride) 250 mls @ 250 mls/hr IVPB DAILY [facility] PRN Reason: Protocol Last Admin: 11/13/17 10:20 Dose: 250 mls/hr Oxycodone/Acetaminophen (Percocet 5/325 Mg Tab) 2 tab PO Q4 PRN PRN Reason: Pain, severe (8-10) Stop: 11/13/17 21:01 Last Admin: 11/13/17 13:18 Dose: 2 tab Thiamine HCl (Vitamin B1 Tab) 100 mg PO DAILY [facility] Last Admin: 11/13/17 10:19 Dose: 100 mg - Labs Labs: 11/10/17 05:20 11/09/17 04:20 PT 13.2 Seconds (9.8-13.1) H 11/09/17 04:20 INR 1.2 (0.9-1.2) 11/09/17 04:20 APTT 36.9 Seconds (25.6-37.1) 11/08/17 01:20 Assessment and Plan (1) Pleuritic pain Status: Acute (2) Pulmonary embolism, bilateral Status: Acute
[2017-11-14] MEDS: Albuterol-Ipratrop 3 mg / 0.5 (3 ml) UD INH SCH ×3 (01:11→13:37)
[2017-11-14 08:00] VITALS: RESP 18
[2017-11-14] MEDS: Oxycodone/Acetaminophen 5/325 mg Tab PO PRN (08:57)
[2017-11-14] MEDS: Azithromycin 500 MG in Sodium Chloride 0.9% 250 ML IVPB SCH (08:58)
[2017-11-14 10:43] LABS: BASO # 0.1 K/uL (0.0-0.2); BASO % 0.9 % (0.0-2.0); EOS # 0.1 K/uL (0.0-0.7); HEMOGLOBIN 13.2 g/dL (12.0-18.0); LYMPH # 1.7 K/uL (1.0-4.3); LYMPH % 24.5 % (20.0-40.0); MEAN CELL VOLUME 77.4 fl (80.0-94.0); MEAN CORPUSCULAR HEMOGLOBIN 24.7 pg (27.0-31.0); MEAN CORPUSCULAR HGB CONC 31.9 g/dL (33.0-37.0); MEAN PLATELET VOLUME 7.4 fl (7.2-11.7); MONO # 0.6 K/uL (0.0-0.8); MONO % 8.2 % (0.0-10.0); NEUT # 4.6 K/uL (1.8-7.0); NEUT % 65.4 % (50.0-75.0); RBC 5.35 Mil/uL (4.40-5.90); RED CELL DISTRIBUTION WIDTH 16.8 % (11.5-14.5)
[2017-11-14 10:51] LABS: INR 1.3 (0.9-1.2); PARTIAL THROMBOPLASTIN TIME 38.4 Seconds (25.6-37.1)
[2017-11-14 10:59] LABS: BLOOD UREA NITROGEN 11 mg/dl (9-20); CALCIUM 10.3 mg/dL (8.4-10.2); GFR AFRICAN-AMERICAN > 60; GFR NON-AFRICAN AMERICAN > 60
--- NOTE | 2017-11-14 11:32 | CT ---
PROCEDURE: CT Chest without contrast HISTORY: Pneumonia. COMPARISON: 11/08/2017 CT pulmonary angiogram. Summary of findings on the comparison examination: Bilateral lower lobe pulmonary emboli. 11/11/2017 two-view chest. TECHNIQUE: Contiguous axial images were obtained through the chest without intravenous contrast enhancement. Sagittal and coronal reconstructions were performed. Radiation dose (DLP): 373.76 mGy-cm. This CT exam was performed using one or more of the following dose reduction techniques: Automated exposure control, adjustment of the mA and/or kV according to patient size, and/or use of iterative reconstruction technique. FINDINGS: LUNGS: Bilateral peripheral lower lobe infiltrates, wedge-shaped peripheral right middle lobe infiltrate, lingular infiltrate. These have improved considerably compared to the prior CT scan. MEDIASTINUM: Unremarkable thoracic aorta. No aneurysm. Normal sized heart. Main pulmonary artery unremarkable. No vascular congestion. No lymphadenopathy. PLEURA: Trace left pleural effusion. BONES: No fracture. No destructive lesion. UPPER ABDOMEN: Grossly unremarkable. OTHER FINDINGS: None. IMPRESSION: Substantial improvement in bilateral lower lobe, right middle lobe and lingular infiltrates compared to the prior CT scan. No new abnormalities identified.
[2017-11-14 12:09] VITALS: BP 114/63; PULSE 65; TEMP 97.3; O2SAT 93
--- NOTE | 2017-11-14 13:16 | CP.PCM.DIS ---
Provider - Provider Date of Admission: 11/08/17 05:55 Attending physician: Teja Fong MD Diagnosis - Discharge Diagnosis (1) Pulmonary embolism, bilateral Status: Acute Priority: High (2) Bilateral pneumonia Status: Acute Priority: High (3) Pleural effusion, left Status: Acute Priority: High (4) Back pain Status: Acute Priority: High (5) Chronic low back pain Status: Chronic Priority: High Hospital Course - Lab Results Lab Results: Micro Results 11/08/17 01:15 Blood Blood Culture - Final NO GROWTH AFTER 5 DAYS 11/08/17 01:15 Blood Gram Stain - Final TEST NOT PERFORMED 11/08/17 01:00 Blood Blood Culture - Final NO GROWTH AFTER 5 DAYS 11/08/17 01:00 Blood Gram Stain - Final TEST NOT PERFORMED 11/09/17 18:23 Urine,Clean Catch Urine Culture - Final No Growth (<1,000 CFU/ML) Most Recent Lab Values WBC 7.0 K/uL (4.8-10.8) 11/14/17 09:40 RBC 5.35 Mil/uL (4.40-5.90) 11/14/17 09:40 Hgb 13.2 g/dL (12.0-18.0) 11/14/17 09:40 Hct 41.4 % (35.0-51.0) 11/14/17 09:40 MCV 77.4 fl (80.0-94.0) L 11/14/17 09:40 MCH 24.7 pg (27.0-31.0) L 11/14/17 09:40 MCHC 31.9 g/dL (33.0-37.0) L 11/14/17 09:40 RDW 16.8 % (11.5-14.5) H 11/14/17 09:40 Plt Count 393 K/uL (130-400) D 11/14/17 09:40 MPV 7.4 fl (7.2-11.7) 11/14/17 09:40 Neut % (Auto) 65.4 % (50.0-75.0) 11/14/17 09:40 Lymph % (Auto) 24.5 % (20.0-40.0) 11/14/17 09:40 [place] % (Auto) 8.2 % (0.0-10.0) 11/14/17 09:40 Eos % (Auto) 1.0 % (0.0-4.0) 11/14/17 09:40 Baso % (Auto) 0.9 % (0.0-2.0) 11/14/17 09:40 Neut # (Auto) 4.6 K/uL (1.8-7.0) 11/14/17 09:40 Lymph # (Auto) 1.7 K/uL (1.0-4.3) 11/14/17 09:40 [place] # (Auto) 0.6 K/uL (0.0-0.8) 11/14/17 09:40 Eos # (Auto) 0.1 K/uL (0.0-0.7) 11/14/17 09:40 Baso # (Auto) 0.1 K/uL (0.0-0.2) 11/14/17 09:40 PT 15.0 Seconds (9.8-13.1) H 11/14/17 09:40 INR 1.3 (0.9-1.2) H 11/14/17 09:40 APTT 38.4 Seconds (25.6-37.1) H 11/14/17 09:40 Protein C Activity 77 % (70-180) 11/09/17 12:20 Protein S Activity 57 % (70-150) L 11/09/17 12:20 Antithrombin III Activ 118 % activity (80-120) 11/09/17 12:20 Factor V see note 11/09/17 12:20 pCO2 32 mm/Hg (35-45) L 11/09/17 04:54 pO2 85 mm/Hg (80-100) 11/09/17 04:54 HCO3 26.1 mmol/L (21-28) 11/09/17 04:54 ABG pH 7.49 (7.35-7.45) H 11/09/17 04:54 ABG Total CO2 25.4 mmol/L (22-28) 11/09/17 04:54 ABG O2 Saturation 97.7 % (95-98) 11/09/17 04:54 ABG O2 Content 16.2 ML/dL (15-23) 11/09/17 04:54 ABG Base Excess 1.5 mmol/L (-2.0-3.0) 11/09/17 04:54 ABG Hemoglobin 11.9 g/dL (11.7-17.4) 11/09/17 04:54 ABG Carboxyhemoglobin 1.0 % (0.5-1.5) 11/09/17 04:54 POC ABG HHb (Measured) 2.3 % (0.0-5.0) 11/09/17 04:54 ABG Methemoglobin 0.6 % (0.0-3.0) 11/09/17 04:54 ABG O2 Capacity 16.6 mL/dL (16-24) 11/09/17 04:54 Alon Test Yes 11/09/17 04:54 VBG pH 7.36 (7.32-7.43) 11/08/17 01:25 VBG pCO2 51 mmHg (40-60) 11/08/17 01:25 VBG HCO3 25.2 mmol/L 11/08/17 01:25 VBG Total CO2 30.4 mmol/L (22-28) H 11/08/17 01:25 VBG O2 Sat (Calc) 52.2 % (40-65) 11/08/17 01:25 VBG Base Excess 2.4 mmol/L (0.0-2.0) H 11/08/17 01:25 VBG Potassium 3.8 mmol/L (3.6-5.2) 11/08/17 01:25 A-a O2 Difference 75.0 mm/Hg 11/09/17 04:54 Hgb O2 Saturation 96.1 % (95.0-98.0) 11/09/17 04:54 Sodium 137.0 mmol/L (132-148) 11/08/17 01:25 Chloride 104.0 mmol/L (98-107) 11/08/17 01:25 Glucose 105 mg/dL (75-110) 11/08/17 01:25 Lactate 1.5 mmol/L (0.7-2.1) 11/08/17 01:25 FiO2 28.0 % 11/09/17 04:54 Sodium 146 mmol/l (132-148) 11/14/17 09:40 Potassium 4.3 MMOL/L (3.6-5.0) 11/14/17 09:40 Chloride 103 mmol/L (98-107) 11/14/17 09:40 Carbon Dioxide 25 mmol/L (22-30) 11/14/17 09:40 Anion Gap 22 (10-20) H 11/14/17 09:40 BUN 11 mg/dl (9-20) 11/14/17 09:40 Creatinine 0.9 mg/dl (0.8-1.5) 11/14/17 09:40 Est GFR ( Amer) > 60 11/14/17 09:40 Est GFR (Non-Af Amer) > 60 11/14/17 09:40 Random Glucose 106 mg/dL (75-110) 11/14/17 09:40 Calcium 10.3 mg/dL (8.4-10.2) H 11/14/17 09:40 Phosphorus 2.7 mg/dl (2.5-4.5) 11/08/17 01:20 Magnesium 2.1 MG/DL (1.6-2.3) 11/08/17 01:20 Total Bilirubin 0.5 mg/dl (0.2-1.3) 11/09/17 04:20 AST 17 U/L (17-59) 11/09/17 04:20 ALT 32 U/L (21-72) 11/09/17 04:20 Alkaline Phosphatase 89 U/L (38-126) 11/09/17 04:20 Troponin I < 0.0120 ng/mL (0.00-0.120) 11/08/17 01:20 Total Protein 7.3 G/DL (6.3-8.2) 11/09/17 04:20 Albumin 3.9 g/dL (3.5-5.0) 11/09/17 04:20 Globulin 3.3 gm/dL (2.2-3.9) 11/09/17 04:20 Albumin/Globulin Ratio 1.2 (1.0-2.1) 11/09/17 04:20 Triglycerides 80 mg/DL (0-149) 11/09/17 04:20 Cholesterol 148 mg/dL (0-199) 11/09/17 04:20 LDL Cholesterol Direct 79 mg/dL (0-129) 11/09/17 04:20 HDL Cholesterol 37 MG/DL (30-70) 11/09/17 04:20 Thyroxine (T4) 8.09 ug/dl (5.5-11.0) 11/09/17 04:20 TSH 3rd Generation 0.35 mIU/ML (0.46-4.68) L 11/09/17 04:20 Venous Blood Potassium 3.8 mmol/L (3.6-5.2) 11/08/17 01:25 Urine Color Yellow (YELLOW) 11/09/17 18: Urine Clarity Slighty-cloudy (Clear) 11/09/17 18: Urine pH 6.0 (5.0-8.0) 11/09/17 18:23 Ur Specific [place] 1.018 (1.003-1.030) 11/09/17 18: Urine Protein Negative mg/dL (NEGATIVE) 11/09/17 18: Urine Glucose (UA) Neg mg/dL (Normal) 11/09/17 18: Urine Ketones Negative mg/dL (NEGATIVE) 11/09/17 18: Urine Blood Negative (NEGATIVE) 11/09/17 18: Urine Nitrate Negative (NEGATIVE) 11/09/17 18:23 Urine Bilirubin Negative (NEGATIVE) 11/09/17 18:23 Urine Urobilinogen 4.0 mg/dL (0.2-1.0) 11/09/17 18:23 Ur Leukocyte Esterase Neg [place]/uL (Negative) 11/09/17 18:23 Urine RBC (Auto) 3 /hpf (0-3) 11/09/17 18:23 Urine Microscopic WBC 1 /hpf (0-5) 11/09/17 18:23 Ur Squamous Epith Cells < 1 /hpf (0-5) 11/09/17 18:23 [id number] Ab <9 J LUIS (<=20) 11/09/17 12:20 Beta-2 GPI IgG Ab <9 [facility] (<=20) 11/09/17 12:20 Beta-2 GPI IgM Ab <9 SMU (<=20) 11/09/17 12:20 Phosphatidylserine IgG 34 U/mL (<10) H 11/09/17 12:20 Phosphatidylserine IgA <20 U/mL (<20) 11/09/17 12:20 Phosphatidylserine IgM <25 U/mL (<25) 11/09/17 12:20 Anti-Phospholipid Intrp see note 11/09/17 12:20 Anti-Cardiolipin IgG Ab <14 GPL (<=14) 11/09/17 12:20 Anti-Cardiolipin IgA Ab <11 APL (<=11) 11/09/17 12:20 Anti-Cardiolipin IgM Ab <12 MPL (<=12) 11/09/17 12:20 Ur L.pneumophila Ag Negative (NEGATIVE) 11/09/17 05:00 M.pneumoniae IgG Titer 2.93 (<=0.90) H 11/09/17 10:30 S.pneumoniae Type 1 IgG <0.3 11/09/17 10:30 S.pneumoniae Type 3 IgG <0.3 11/09/17 10:30 S.pneumoniae Type 4 IgG <0.3 11/09/17 10:30 S.pneumoniae Type 5 IgG 0.3 11/09/17 10:30 S.pneumoniae Type 8 IgG 2.7 11/09/17 10:30 S.pneumoniae Type 9 IgG 0.9 11/09/17 10:30 S.pneumoniae Typ 12 IgG <0.3 11/09/17 10:30 S.pneumoniae Typ 14 IgG 0.4 11/09/17 10:30 S.pneumonia Type 19 IgG 3.2 11/09/17 10:30 S.pneumonia Type 23 IgG <0.3 11/09/17 10:30 S.pneumoniae Typ 26 IgG <0.3 11/09/17 10:30 S.pneumoniae Typ 51 IgG 4.9 11/09/17 10:30 S.pneumoniae Typ 56 IgG 0.7 11/09/17 10:30 S.pneumoniae Typ 68 IgG 0.7 11/09/17 10:30 Prothrombin Mut Interp see note 11/09/17 12:20 Prothrombin Gene Mutate see note 11/09/17 12:20 Prothromb Gene Review see note 11/09/17 12:20 Discharge Exam - Head Exam Head Exam: NORMAL INSPECTION Discharge Plan - Follow Up Plan Condition: FAIR Disposition: HOME/ ROUTINE Instructions: Low Back Pain (DC), Pneumonia, Adult (DC), Pulmonary Embolism ( Blood Clot in the Lungs) (DC) Additional Instructions: follow appt. with on tuesday11/21/17 at 3:00pm Referrals: Shaik Gordon MD [Medical Doctor] - Teja Fong MD [Staff Provider] - Randy Rosario MD [Staff Provider] -
== END 2017-11-14 14:30 | disposition home or self-care (01) | DRG 175 ==
LOC: H.ER 21:46 → H.ERHOLD 11-08 05:55 → H.TEL 11-08 16:36
PROVIDERS: ADMIT Internal Medicine Pulmonary Disease; ATTEND Internal Medicine Pulmonary Disease
PROC: 3E0F7GC Introduction of Other Therapeutic Substance into Respiratory Tract, Via Natural or Artificial Opening (ICD-10-PCS; principal; 2017-11-08)
DX: I26.99 Other pulmonary embolism without acute cor pulmonale (principal); J18.9 Pneumonia, unspecified organism; J90 Pleural effusion, not elsewhere classified; J98.11 Atelectasis; G89.29 Other chronic pain; M54.40 Lumbago with sciatica, unspecified side; Z79.1 Long term (current) use of non-steroidal anti-inflammatories (NSAID); M54.9 Dorsalgia, unspecified; Z79.01 Long term (current) use of anticoagulants

== ENCOUNTER 2018-04-05 08:04 | Emergency (ER) | payer MEDICARE ==
[2018-04-05 08:08] VITALS: BMI 23.7
[2018-04-05 08:09] VITALS: BP 137/75; PULSE 59; RESP 17; TEMP 97.8; O2SAT 99
[2018-04-05] MEDS ORDERED: Naproxen 500 MG TAB PO ONE (08:53)
[2018-04-05] MEDS ORDERED: Lidocaine 5% Patch TD STA (08:54)
--- NOTE | 2018-04-05 10:08 | ED PDOC ---
HPI: Back Time Seen by Provider: 04/05/18 08:25 Chief Complaint (Nursing): Lower Extremity Problem/Injury Chief Complaint (Provider): left lower back and left leg History Per: Patient History/Exam Limitations: no limitations Onset/Duration Of Symptoms: Days (x1) Current Symptoms Are (Timing): Still Present Previous Symptoms: Back Pain Associated Symptoms: None Exacerbating Factor(s): Movement Additional Complaint(s): Gennaro Oakes is a 53 year old male, with a past medical history of chronic sciatica, who presents to the emergency department complaining of left lower back pain that radiates down the left leg onset since yesterday at 18:30. [place] and describes it as having a charley horse. Patient further states pain is worst with movement and reports similar symptoms in the past. He took x2 Motrin yesterday without relief. Of note, patient sees Dr. Gordon for chronic sciatica and is prescribed Percocet 5mg QID, 120 tabs/month. Patient reports last time he saw his PMD was March 04 but is not scheduled to see him again until April 14 and states he ran out of Percocet. He denies any fever, chills, urinary symptoms , constipation, incontinence of stool or urine. No further medical complaints. PMD: Shaik Gordon Past Medical History Reviewed: Historical Data, Nursing Documentation, Vital Signs Vital Signs: Last Vital Signs Temp 97.8 F 04/05/18 08:25 Pulse 59 L 04/05/18 08:25 Resp 17 04/05/18 08:25 BP 137/75 04/05/18 08:25 Pulse Ox 99 04/05/18 08:25 - Medical History PMH: Back Problems (Herniated Discs, Sciatica) Denies: Chronic Kidney Disease - Surgical History Surgical History: No Surg Hx - Family History Family History: States: Unknown Family Hx - Social History Current smoker - smoking cessation education provided: Yes (light smoker ) Alcohol: None Drugs: Denies - Immunization History Hx Tetanus Toxoid Vaccination: No Hx Influenza Vaccination: No Hx Pneumococcal Vaccination: No - Home Medications Home Medications: Ambulatory Orders Medication Instructions Recorded oxyCODONE/Acetaminophen [Percocet 1 tab PO Q6 PRN 11/08/17 5/325 mg Tab] Apixaban [Eliquis] 5 mg PO BID #60 tab 04/09/18 Azithromycin [Zithromax] 500 mg PO DAILY #6 tab 11/14/17 Thiamine [Vitamin B1 Tab] 100 mg PO DAILY #30 tab 11/14/17 Cyclobenzaprine [Cyclobenzaprine 10 mg PO TID #30 tab 04/05/18 HCl] Lidocaine 5% [Lidoderm] 1 patch TD DAILY #10 patch 04/05/18 Naproxen [Naprosyn] 500 mg PO BID PRN #20 tablet 04/05/18 - Allergies Allergies/Adverse Reactions: Allergies Allergy/AdvReac Type Severity Reaction Status Date / Time No Known Allergies Allergy Verified 04/05/18 08:36 Review of Systems ROS Statement: Except As Marked, All Systems Reviewed And Found Negative Constitutional: Negative for: Fever, Chills Gastrointestinal: Negative for: Constipation Genitourinary Male: Negative for: Dysuria, Frequency, Incontinence (stool or urine), Hematuria Musculoskeletal: Positive for: Back Pain (left lower), Leg Pain (left) Physical Exam - Reviewed Nursing Documentation Reviewed: Yes Vital Signs Reviewed: Yes - Physical Exam Appears: Positive for: No Acute Distress Head Exam: Positive for: ATRAUMATIC, NORMAL INSPECTION, NORMOCEPHALIC Skin: Positive for: Normal Color, Warm, Dry Eye Exam: Positive for: Normal appearance Neck: Positive for: Painless ROM Back: Positive for: Other (left lumbar tenderness) Extremity: Positive for: Normal ROM (all extremities). Negative for: Deformity , Swelling Neurologic/Psych: Positive for: Alert, Oriented (x3), Other (Unable to examine rest of full neuro due to patient uncooperation stating he is in pain. ) - ECG O2 Sat by Pulse Oximetry: 99 (RA) Pulse Ox Interpretation: Normal Medical Decision Making Medical Decision Making: Time: 08:25 Initial Impression: sciatica Initial Plan: --Flexeril 10 mg PO --Lidoderm 1 ea TD --Naproxen 500 mg PO --Tylenol 325 mg tab 975 mg PO --Reevaluation ----- Scribe Attestation: Documented by Terrance Birch, acting as a scribe for Constanza Grant MD. Provider Scribe Attestation: All medical record entries made by the Scribe were at my direction and personally dictated by me. I have reviewed the chart and agree that the record accurately reflects my personal performance of the history, physical exam, medical decision making, and the department course for this patient. I have also personally directed, reviewed, and agree with the discharge instructions and disposition. Disposition - Clinical Impression Clinical Impression: Back pain - Disposition Referrals: Kaycee Kent [Outside] Shaik Gordon MD [Medical Doctor] - Prescriptions: Cyclobenzaprine [Cyclobenzaprine HCl] 10 mg PO TID #30 tab Lidocaine 5% [Lidoderm] 1 patch TD DAILY #10 patch Naproxen [Naprosyn] 500 mg PO BID PRN #20 tablet PRN Reason: Pain, Moderate (4-7) Forms: [facility] [place] (Spanish)
== END 2018-04-05 10:27 | disposition home or self-care (01) ==
LOC: H.ER 08:04
DX: M54.5 Low back pain (principal)